=== PATIENT | female | born 1990 | race Caucasian/White ===

== ENCOUNTER 2017-04-20 12:04 | Emergency (ER) | payer OTHER ==
[~2017-04-20] VITALS: Ht 160 cm; Wt 68.0 kg
[2017-04-20] MEDS ORDERED: ZOLOFT25 MG PO (12:10)
[2017-04-20] MEDS ORDERED: IRON325 PO (12:10)
[2017-04-20] MEDS ORDERED: UNICOMPLEX M TA1 TA1 PO (12:10)
[2017-04-20] MEDS ORDERED: MOBIC15 MG PO (13:58)
== END 2017-04-20 14:12 | disposition home or self-care (01) ==
LOC: ER 12:04
DX: S90.112A Contusion of left great toe without damage to nail, initial encounter (principal); S09.90XA Unspecified injury of head, initial encounter; F41.9 Anxiety disorder, unspecified; F32.9 Major depressive disorder, single episode, unspecified; F17.210 Nicotine dependence, cigarettes, uncomplicated; Z91.040 Latex allergy status; W18.39XA Other fall on same level, initial encounter; Y93.02 Activity, running; Y92.89 Other specified places as the place of occurrence of the external cause; Y99.8 Other external cause status

== ENCOUNTER 2017-05-03 10:27 | Emergency (ER) | payer OTHER ==
[~2017-05-03] VITALS: Ht 160 cm; Wt 68.0 kg
[~2017-05-03 10:27] MED LIST: IRON325 PO; MOBIC15 MG PO; UNICOMPLEX M TA1 TA1 PO; ZOLOFT25 MG PO
[2017-05-03 11:30] LABS: ABSOLUTE NEUTROPHILS 3.1 thou/uL (1.4-8.2); BASOPHILS 0.6 % (0.0-2.0); EOSINOPHILS 3.2 % (0.0-3.0); HEMATOCRIT 39.3 % (37.0-47.0); HEMOGLOBIN 13.6 gm/dL (12.0-15.0); LYMPHOCYTES 39.9 % (24.0-44.0); MCH 32.1 pg (26.0-34.0); MCHC 34.5 g/dL (28.0-37.0); MCV 92.9 fL (80.0-100.0); MONOCYTES 5.3 % (1.0-8.0); PLATELET COUNT 287 thou/uL (150-400); RBC 4.23 mil/uL (4.20-5.00); RDW 13.5 % (10.5-14.5); WBC 6.1 thou/uL (4.0-11.0)
[2017-05-03 11:43] LABS: CALCIUM 8.7 mg/dL (8.5-10.1); CREATININE 0.9 mg/dL (0.6-1.0); POTASSIUM 3.8 mmol/L (3.5-5.1)
[2017-05-03] MEDS ORDERED: ZYRTEC10 M2 PO (11:52)
[2017-05-03] MEDS ORDERED: MOBIC7.5 MG PO (11:52)
== END 2017-05-03 12:01 | disposition home or self-care (01) ==
LOC: ER 10:27
PROVIDERS: Physician Assistant
DX: M79.675 Pain in left toe(s) (principal); I95.1 Orthostatic hypotension; H92.01 Otalgia, right ear; F41.9 Anxiety disorder, unspecified; F32.9 Major depressive disorder, single episode, unspecified; Z86.2 Personal history of diseases of the blood and blood-forming organs and certain disorders involving the immune mechanism; Z91.040 Latex allergy status; Z87.891 Personal history of nicotine dependence

== ENCOUNTER 2017-06-10 21:58 | Emergency (ER) | payer OTHER ==
[~2017-06-10] VITALS: Ht 160 cm; Wt 68.0 kg
--- NOTE | ~2017-06-10 | EKG ---
[address] [place] [place] [address] ELECTROCARDIOGRAM REPORT Name: OZIEL CARR Room #: [facility]#: [id number] Admission: 06/10/17 Attend Phys: Discharge: 06/10/17 Date of : 86 Report #: [id number] THIS REPORT FOR: //name// [facility] ED Test Date: 2017-06-10 Test Time: 22:15:22 Pat Name: OZIEL CARR Department: Room: Gender: F Frit Burner: MZOOK : 1990 Requested By: Ramírez Henderson Order Number: [id number] MD: Jordan Carroll Measurements Intervals [place] Rate: 68 P: 50 NM: 144 QRS: 49 QRSD: 79 T: 51 QT: 390 QTc: 415 Interpretive Statements Sinus rhythm No significant abnormality No previous ECG available for comparison Electronically Signed On 06-11-2017 19:18:45 CDT by Jordan Carroll [email or web address] <ELECTRONICALLY SIGNED> By: Jordan Carroll MD, [facility] 06/11/17 1918 2215 2215 Jordan Carroll MD, FACC /EPI
[~2017-06-10 21:58] MED LIST changes: +MOBIC7.5 MG PO; +ZYRTEC10 M2 PO
[2017-06-10 22:24] LABS: ABSOLUTE NEUTROPHILS 3.7 thou/uL (1.4-8.2); BASOPHILS 0.6 % (0.0-2.0); EOSINOPHILS 3.6 % (0.0-3.0); HEMATOCRIT 41.6 % (37.0-47.0); HEMOGLOBIN 14.4 gm/dL (12.0-15.0); LYMPHOCYTES 37.4 % (24.0-44.0); MCH 32.2 pg (26.0-34.0); MCHC 34.5 g/dL (28.0-37.0); MCV 93.3 fL (80.0-100.0); MONOCYTES 6.7 % (1.0-8.0); PLATELET COUNT 285 thou/uL (150-400); POLYS 51.7 % (36.0-66.0); RBC 4.46 mil/uL (4.20-5.00); WBC 7.1 thou/uL (4.0-11.0)
[2017-06-10 22:32] LABS: ANION GAP 5 mmol/L (7-16); BUN 16 mg/dL (7-18); CHLORIDE 107 mmol/L (98-107); CO2 28 mmol/L (21-32); CREATININE 0.9 mg/dL (0.6-1.0); GLUCOSE 108 mg/dL (74-106); POTASSIUM 3.9 mmol/L (3.5-5.1); SODIUM 140 mmol/L (136-145)
[2017-06-10 22:40] LABS: TROPONIN-I < 0.04 ng/mL (<0.06)
[2017-06-10] MEDS ORDERED: TIZANIDINE HCL4 MG PO (22:45)
[2017-06-10] MEDS ORDERED: MOBIC15 MG PO (22:45)
== END 2017-06-10 23:03 | disposition home or self-care (01) ==
LOC: ER 21:58
PROVIDERS: Nurse Practitioner
DX: R07.89 Other chest pain (principal); F41.9 Anxiety disorder, unspecified; F32.9 Major depressive disorder, single episode, unspecified; Z87.891 Personal history of nicotine dependence; Z91.040 Latex allergy status